=== PATIENT | male | born 1930 | race Caucasian/White ===

== ENCOUNTER → 2016-11-26 | Outpatient (CLI) | payer MEDICARE, BC ==
[~2016-11-26] MED LIST: ASPIRIN; ATENOLOL; ATENOLOL PO; CIPRO; COUMADIN PO; HYTRIN; KCL; KCL PO; MICRO-K; MULTI-VITAMIN1 TAB; NAPROXEN; NORVASC PO; PLENDIL; POTASSIUM; PRAVACHOL PO; PROSCAR5 MG; PROSCAR5 MG PO; ZOCOR
--- NOTE | ~2016-11-26 | PFT ---
[id number] [facility] [address]. [place], [place] [address] [id number] O MR#: [id number] NAME: REJI TAYLOR ROOM: SEX: M STUDY DATE/TIME: 11/27/2016 : 1930 AGE: 86 STUDY DESCRIPTION: Attending Physician: Gregoria Villegas M.D. Referring Physician: Gregoria Villegas M.D. Primary Care Physician: Gregoria Villegas M.D. PULMONARY DIAGNOSTIC REPORT EXAM PFT. FINDINGS Spirometry is suggestive of a mild obstructive defect. There is no significant response to bronchodilators. FEV1 is 1.53 liters, 62% of predicted. Flow volume loop is consistent with an obstructive defect. Lung volumes suggest airtrapping. Diffusion capacity is mildly reduced. Changes are consistent with COPD. Dictated by... Ortega Coppola/pau TD: 11/27/2016 12:23 JOB #: [id number] PULMONARY DIAGNOSTIC REPORT Page 1 of 1
== END | disposition home or self-care (01) ==
LOC: CRC 10:25
DX: R06.00 Dyspnea, unspecified (principal)
CPT/HCPCS: 94060; 94726; 94729